=== PATIENT | female | born 1955 | race Caucasian/White ===

== ENCOUNTER → 2025-04-01 | Outpatient (CLI) | payer MEDICARE, MEDICAID, SELFPAY ==
[2025-04-01 15:10] LABS: Collection Type, Urine Clean Catch
[2025-04-01 15:46] LABS: Basophils # (Auto) 0.0 Thou/mm3 (0.0-0.2); Basophils % (Auto) 1 % (0-2.5); Eosinophils # (Auto) 0.2 Thou/mm3 (0.0-0.5); Eosinophils % (Auto) 2 % (0-10); Hematocrit 34.2 % (36.0-46.0); Hemoglobin 11.4 g/dL (12.0-16.0); Immature Granulocytes Auto 0.02 Thou/mm3 (0.00-0.00); Lymphocytes # (Auto) 2.4 Thou/mm3 (1.0-4.8); Lymphocytes % (Auto) 29 % (10-50); Mean Corpuscular HGB Conc 33.3 g/dl (31.0-37.0); Mean Corpuscular Hemoglobin 30.6 pg (25.0-35.0); Mean Corpuscular Volume 92 fL (80-100); Monocytes # (Auto) 0.7 Thou/mm3 (0.0-0.8); Monocytes % (Auto) 9 % (0-12); Neutrophils # (Auto) 4.9 Thou/mm3 (1.8-7.7); Neutrophils % (Auto) 60 % (37-80); Nucleated Red Blood Cell # 0.00 Thou/mm3 (0.00-0.00); Nucleated Red Blood Cell % 0 /100 WBC (0); Platelet Count 271 Thou/mm3 (140-440); RDW Standard Deviation 54.8 fL (36.4-46.3); Red Blood Count 3.72 Miln/mm3 (4.00-5.20); White Blood Count 8.2 Thou/mm3 (3.6-11.0)
[2025-04-01 16:01] LABS: Bilirubin,Urine Negative (Negative); Blood,Urine Negative (Negative); Clarity,Urine Clear (Clear/Hazy); Color,Urine Lt-Yellow (Lt Yel-Yel); Culture Indicated,Urine Not Indicated; Glucose, Urine Negative (Negative); Hyaline Casts,Urine < 1 /hpf (0-1); Ketones,Urine Negative (Negative); Leukocyte Esterase,Urine Negative (Negative); Nitrite,Urine Negative (Negative); PH,Urine 7.5 (5.0-7.0); Protein,Urine Negative (Neg - Trace); RBC,Urine < 1 /hpf (0-3); Specific Gravity,Urine 1.015 (1.001-1.035); Squamous Epithelial Cell,Urine 2 /hpf (0-5); Urobilinogen,Urine 2.0 mg/dL (0.0-1.0); WBC,Urine 1 /hpf (0-5)
[2025-04-01 16:08] LABS: Vitamin D 25 Hydroxy Total 51.1 ng/mL (7.3-40.2)
[2025-04-01 16:10] LABS: Parathyroid Hormone Intact 57.4 pg/ml (18.5-88.0)
[2025-04-04 22:04] LABS: Albumin 3.5 g/dL (3.8-4.8); Alpha-1-Globulin 0.4 g/dL (0.2-0.3); Alpha-2-Globulin 0.9 g/dL (0.5-0.9); Beta-1-Globulin 0.5 g/dL (0.4-0.6); Beta-2-globulin 0.5 g/dL (0.2-0.5); Gamma Globulin 1.1 g/dL (0.8-1.7)
[2025-04-05 06:36] LABS: Protein, total, serum 7.0 g/dL (6.1-8.1)
== END | disposition home or self-care (01) ==
PROVIDERS: PCP Family Medicine; Referring Provider Family Medicine; Visit Provider Family Medicine
DX: M80.00XS Age-related osteoporosis with current pathological fracture, unspecified site, sequela (principal); D72.829 Elevated white blood cell count, unspecified; D72.820 Lymphocytosis (symptomatic); R80.9 Proteinuria, unspecified
CPT/HCPCS: 36415; 81001; 82306; 83970; 84155; 84165; 85025

== ENCOUNTER → 2025-04-11 | Outpatient (CLI) | payer MEDICARE, MEDICAID, SELFPAY ==
--- NOTE | 2025-04-11 13:00 | XR_ITS ---
Examination: Screening digital mammography, bilateral Computer aided detection 3-D breast Tomosynthesis, bilateral Date and time of exam: April 11, 2025 1259 hours Compared to mammograms dating to October 24, 2020 Indication: Screening Technique: Nonmagnified MLO, CC views of the breasts to been obtained, reconstructed from 3-D Tomosynthesis images. R2 computer aided detection program utilized for evaluation of suspicious masses and/or abnormal calcifications. 3-D Tomosynthesis images obtained. Findings: The breasts are heterogeneously dense, which may obscure small masses Benign calcifications. No interval suspicious masses Impression: BI-RADS category II: Benign Findings. Recommend 1 year follow-up mammogram.
== END | disposition home or self-care (01) ==
PROVIDERS: PCP Family Medicine; Referring Provider Family Medicine; Visit Provider Family Medicine
DX: Z12.31 Encounter for screening mammogram for malignant neoplasm of breast (principal); R92.323 Mammographic fibroglandular density, bilateral breasts; R92.1 Mammographic calcification found on diagnostic imaging of breast
CPT/HCPCS: 77063; 77067

== ENCOUNTER → 2025-06-12 | Outpatient (CLI) | payer MEDICARE, MEDICAID, SELFPAY ==
--- NOTE | 2025-06-12 15:44 | XR_ITS ---
Examination: Lumbar spine 3 views Technique one AP lateral coned lateral lower lumbar spine 3 views Date and time: June 12, 2025 1551 hours, comparison February 19, 2021 INDICATIONS: Low back pain years, lumbar surgery May 22, 2025 FINDINGS: Orthopedic screw traverses the sacral and iliac regions Severe osteopenia Grade 1 anterolisthesis L5 on S1 Chronic osteoporotic compression L2 with kyphoplasty Adequate alignment of this vertebral body IMPRESSION: Severe osteopenia Chronic osteoporotic compression L2 vertebral body with kyphoplasty Moderate disc narrowing L3-L4, L4-L5, L5-S1
== END | disposition home or self-care (01) ==
LOC: CDIM 15:37
PROVIDERS: Referring Provider Physician Assistant; Visit Provider Physician Assistant
DX: M85.88 Other specified disorders of bone density and structure, other site (principal); M48.061 Spinal stenosis, lumbar region without neurogenic claudication; M48.07 Spinal stenosis, lumbosacral region; M81.8 Other osteoporosis without current pathological fracture; G95.29 Other cord compression
CPT/HCPCS: 72100